=== PATIENT | male | born 1950 | race Caucasian/White ===

== ENCOUNTER 2019-06-01 12:36 | Emergency (ER) | payer MEDICARE ==
[~2019-06-01] VITALS: Ht 175.3 cm; Wt 116.7 kg
[2019-06-01] VITALS (7 sets, daily range): BP systolic 107–122; BP diastolic 54–79
[2019-06-01 13:29] LABS: ANION GAP 9 mmol/L (5-15); CALCIUM 9.1 mg/dL (8.5-10.1); CHLORIDE 104 mmol/L (98-107)
--- NOTE | 2019-06-01 13:49 | NUR ---
FIRST CONTACT WITH PT. PT WAS SENT BY STATING "FOR MORE BLOOD, HGB 7 WAS 2 DAYS AGO", HX ANEMIA. PT C/O GENERALIZED WEAKNESS. DENIES ANY OTHER SYMPTOMS AT THIS TIME. PT'S AOX4. RESPS EVEN AND UNLABORED. ALL MONITORS IN PLACE. CALL LIGHT WITHIN REACH.
[2019-06-01 13:53] LABS: MEAN CORPUSCULAR HEMOGLOBIN 33.3 pg (27.5-34.5); MEAN CORPUSCULAR HGB CONC 34.9 g/dL (33.2-36.2); MEAN CORPUSCULAR VOLUME 95.2 fL (81-97); MEAN PLATELET VOLUME 8.3 fL (7.4-10.4); RED BLOOD COUNT 2.18 x10^6/uL (4.38-5.82); RED CELL DISTRIBUTION WIDTH 22.2 % (9.4-14.8)
[2019-06-01 13:55] LABS: MD YES; PLATELET COUNT 16 x10^3/uL (130-400)
[2019-06-01 13:56] LABS: <PLATELET ESTIMATE> DECREASED; <PLT MORPHOLOGY> QNS FOR PLT MORPH; BAND#(MANUAL) 0.11 x10^3/uL; BANDS%(MANUAL) 6 % (0-7); EOS#(MANUAL) 0.02 x10^3/uL (0.0-0.4); EOS% (MANUAL) 1 % (1-7); LYMPH#(MANUAL) 0.65 x10^3/uL (1-3.4); LYMPHS% (MANUAL) 36 % (22-44); MONOS#(MANUAL) 0.11 x10^3/uL (0.3-2.7); MONOS% (MANUAL) 6 % (2-9); NRBC % (MANUAL) 1 % (0-1); PROGRANULOCYTES# (MANUAL) 0.02 x10^3/uL (0-0); PROGRANULOCYTES% (MANUAL) 1 % (0-0); SEGS% (MANUAL) 50 % (42-75)
[2019-06-01 13:58] LABS: ANISOCYTOSIS 2+
--- NOTE | 2019-06-01 14:29 | NUR ---
PT AND EDMD SIGNED ON BLOOD TRANSFUSION CONSENT FORM AT THIS TIME.
--- NOTE | 2019-06-01 14:56 | NUR ---
blood transfusion strted at this time. pt tolerated well.
--- NOTE | 2019-06-01 15:35 | NUR ---
PT STILL TRANSFUSING PRBC'S. PT'S AOX4. RESPS EVEN AND UNLABORED. PT DENIES PAIN/SOB/BACK PAIN/CP/ITCHINESS AT THIS TIME. PIV SITE CDI WITH NO REDNESS/EDEMA.
--- NOTE | 2019-06-01 16:08 | NUR ---
PT STILL TRANSFUSING PRBC'S. PT'S AOX4. RESPS EVEN AND UNLABORED. PT DENIES PAIN/SOB/BACK PAIN/CP/ITCHINESS AT THIS TIME. PIV SITE CDI WITH NO REDNESS/EDEMA. ALL MONITORS IN PLACE. CALL LIGHT WITHIN REACH. FAMILY AT BEDSIDE.
--- NOTE | 2019-06-01 17:27 | NUR ---
blood transfusion done at this time. pt's aox4. resps even and unlabored. all monitors in place. call light within reach.
--- NOTE | 2019-06-01 18:01 | NUR ---
Patient given discharge instructions and they have confirmed that they understand the instructions.
== END 2019-06-01 18:02 ==
LOC: ED 13:18
DX: D61.818 Other pancytopenia (principal); D64.9 Anemia, unspecified
CPT/HCPCS: 36415; 36430; 80048; 85025; 86850; 86900; 86923; 99285; P9040

== ENCOUNTER 2020-04-10 05:50 | Day surgery (SDC) | payer MEDICARE ==
[~2020-04-10] VITALS: Ht 177.8 cm; Wt 108.0 kg
[2020-04-10] MEDS ORDERED: SODIUM CHLORIDE 0.9% 1,000 ML IV SCH (06:30)
[2020-04-10 06:36] VITALS: BP 116/81
[2020-04-10 07:02] LABS: MEAN CORPUSCULAR HEMOGLOBIN 35.6 pg (27.5-34.5); MEAN CORPUSCULAR HGB CONC 35.5 g/dL (33.2-36.2); MEAN PLATELET VOLUME 7.7 fL (7.4-10.4); RED BLOOD COUNT 2.43 x10^6/uL (4.38-5.82); RED CELL DISTRIBUTION WIDTH 15.1 % (9.4-14.8)
[2020-04-10] MEDS ORDERED: MIDAZOLAM 1 MG/ML, 5ML ONE (08:01)
[2020-04-10] MEDS ORDERED: FENTANYL PF 100 MCG/2ML ONE (08:01)
[2020-04-10] MEDS ORDERED: FLUMAZENIL 0.1 MG/1 ML, 5ML ONE (08:02)
[2020-04-10] MEDS ORDERED: NALOXONE 1 MG/ML, 2ML ONE (08:02)
[2020-04-10 08:23] LABS: MD YES; PLATELET COUNT 7 x10^3/uL (130-400)
[2020-04-10 08:54] LABS: SEG#(MANUAL) 0.36 x10^3/uL (1.8-6.8); SEGS% (MANUAL) 52 % (42-75)
[2020-04-10 08:55] LABS: BAND#(MANUAL) 0.04 x10^3/uL; BANDS%(MANUAL) 6 % (0-7); LYMPH#(MANUAL) 0.25 x10^3/uL (1-3.4); LYMPHS% (MANUAL) 36 % (22-44); MONOS#(MANUAL) 0.03 x10^3/uL (0.3-2.7); MONOS% (MANUAL) 4 % (2-9); REACTIVE LYMPHS # (MANUAL) 0.01 x10^3/uL (0-0); REACTIVE LYMPHS % (MANUAL) 2 % (0-0)
[2020-04-10 08:57] LABS: <PLATELET ESTIMATE> DECREASED; <PLT MORPHOLOGY> NORMAL PLT MORPH; <RBC MORPHOLOGY> NORMAL
== END 2020-04-10 09:20 | disposition home or self-care (01) ==
LOC: RAD 05:50 → OUT 09:20
PROVIDERS: ATTEND Specialist
DX: C92.01 Acute myeloblastic leukemia, in remission (principal); G47.30 Sleep apnea, unspecified; D69.6 Thrombocytopenia, unspecified; D69.8 Other specified hemorrhagic conditions; Z79.899 Other long term (current) drug therapy; Z72.89 Other problems related to lifestyle; Z87.891 Personal history of nicotine dependence; Z83.3 Family history of diabetes mellitus; Z98.890 Other specified postprocedural states
CPT/HCPCS: 36415; 38222; 77012; 85025; 85060; 85097; 88237; 88264; 88280; 88305; 88311; 88313; 88342; 88360; 99156; 99157; J2250; J3010; J7030; J2310

== ENCOUNTER 2020-06-01 07:43 | Day surgery (SDC) | payer MEDICARE ==
[~2020-06-01] VITALS: Ht 175.3 cm; Wt 106.0 kg
[2020-06-01 08:28] VITALS: BP 122/85
[2020-06-01] MEDS ORDERED: LACTATED RINGERS 1,000 ML IV SCH (08:30)
[2020-06-01 08:52] LABS: MEAN CORPUSCULAR HEMOGLOBIN 31.5 pg (27.5-34.5); MEAN CORPUSCULAR HGB CONC 34.9 g/dL (33.2-36.2); MEAN PLATELET VOLUME 8.1 fL (7.4-10.4); RED BLOOD COUNT 2.88 x10^6/uL (4.38-5.82); RED CELL DISTRIBUTION WIDTH 14.8 % (9.4-14.8)
[2020-06-01] MEDS ORDERED: SODIUM CHLORIDE 0.9% 1,000 ML IV SCH (09:00)
[2020-06-01 09:13] LABS: MD YES
[2020-06-01 09:14] LABS: PLATELET COUNT 10 x10^3/uL (130-400)
[2020-06-01 09:20] LABS: LYMPH#(MANUAL) 0.53 x10^3/uL (1-3.4); LYMPHS% (MANUAL) 89 % (22-44); MONOS#(MANUAL) 0.01 x10^3/uL (0.3-2.7); MONOS% (MANUAL) 2 % (2-9); SEG#(MANUAL) 0.05 x10^3/uL (1.8-6.8); SEGS% (MANUAL) 9 % (42-75)
[2020-06-01 09:21] LABS: <PLATELET ESTIMATE> DECREASED; <PLT MORPHOLOGY> QNS FOR PLT MORPH; <RBC MORPHOLOGY> NORMAL
[2020-06-01] MEDS ORDERED: FLUMAZENIL 0.1 MG/1 ML, 5ML ONE (09:29)
[2020-06-01] MEDS ORDERED: MIDAZOLAM 1 MG/ML, 5ML ONE (09:29)
[2020-06-01] MEDS ORDERED: FENTANYL PF 100 MCG/2ML ONE (09:29)
[2020-06-01] MEDS ORDERED: NALOXONE 1 MG/ML, 2ML ONE (09:30)
== END 2020-06-01 11:40 | disposition home or self-care (01) ==
LOC: OUT 07:43 → EDSTATUS 09:30 → OUT 11:40
PROVIDERS: ATTEND Specialist
DX: C92.01 Acute myeloblastic leukemia, in remission (principal); D69.6 Thrombocytopenia, unspecified; Z79.899 Other long term (current) drug therapy; Z83.3 Family history of diabetes mellitus
CPT/HCPCS: 36415; 38222; 77012; 85025; 85060; 85097; 88237; 88264; 88280; 88305; 88311; 88313; 99156; J2250; J3010; J7030; 88360; 99157; J2310